=== PATIENT | female | born 1975 | race Caucasian/White ===

== ENCOUNTER → 2016-12-12 | Outpatient (CLI) | payer OTHER ==
[~2016-12-12] MED LIST: ADVIN25/60 INH; OXYC-57 PO; PRLSR20 PO
[2016-12-12 17:23] LABS: BASO % 0.2 %; BASO ABS # 0.02 K/uL (0-0.2); COMPLETE YES; EOS % 2.8 %; HEMATOCRIT 36.7 % (37-47); IG% 0.2 %; LYMPH % 27.2 %; LYMPH ABS # 2.26 K/uL (1.2-3.4); MEAN CELL VOLUME 73.3 fL (80-100); MEAN CORPUSCULAR HEMOGLOBIN 23.2 pg (25-34); MEAN CORPUSCULAR HGB CONC 31.6 g/dl (32-36); MEAN PLATELET VOLUME 9.3 fL (7.4-10.4); MONO % 6.1 %; NEUT % 63.5 %; PLATELET COUNT 325 K/uL (130-400); RED BLOOD COUNT 5.01 M/uL (4.2-5.4); WHITE BLOOD COUNT 8.32 K/uL (4.8-10.8)
== END | disposition home or self-care (01) ==
LOC: C.LAB1850 16:19
PROVIDERS: ATTEND Obstetrics & Gynecology
DX: N92.0 Excessive and frequent menstruation with regular cycle (principal)

== ENCOUNTER → 2017-01-03 | Outpatient (CLI) | payer OTHER | END | disposition home or self-care (01) | LOC: C.PAPS 11:59 | PROVIDERS: ATTEND Obstetrics & Gynecology | DX: Z12.4 Encounter for screening for malignant neoplasm of cervix (principal) ==

== ENCOUNTER → 2017-02-13 | Day surgery (SDC) | payer OTHER ==
[2017-01-21 11:36] VITALS: Ht 162.6 cm; Wt 119.7 kg
--- NOTE | 2017-01-21 11:59 | PAT Medication Instructions ---
Service Date January 21, 2017. Current Home Medication List Fluticasone Prop/Salmeterol (Advair Diskus 250/50 60 Dose), 1 PUFF INH BID Omeprazole (Prilosec), 20 MG PO DAILY PRN for Indigestion Medication Instructions For Your Scheduled Surgery - Take the following medications the morning of surgery with a sip of water: Fluticasone Prop/Salmeterol (Advair Diskus 250/50 60 Dose), 1 PUFF INH BID Omeprazole (Prilosec), 20 MG PO DAILY PRN for Indigestion - Take the following medications as scheduled the night before surgery: Fluticasone Prop/Salmeterol (Advair Diskus 250/50 60 Dose), 1 PUFF INH BID Omeprazole (Prilosec), 20 MG PO DAILY PRN for Indigestion If you have any questions please call us at [phone] (Amarilis Valdes PA-C) or [phone] or [phone]
[2017-01-21 12:40] LABS: HEMATOCRIT 37.3 % (37-47); MEAN CELL VOLUME 74.5 fL (80-100); MEAN CORPUSCULAR HEMOGLOBIN 22.6 pg (25-34); MEAN CORPUSCULAR HGB CONC 30.3 g/dl (32-36); MEAN PLATELET VOLUME 9.2 fL (7.4-10.4); PLATELET COUNT 354 K/uL (130-400); RED BLOOD COUNT 5.01 M/uL (4.2-5.4); WHITE BLOOD COUNT 6.37 K/uL (4.8-10.8)
[2017-01-21 15:09] LABS: BUN/CREATININE RATIO 14.7 (10-20); CREATININE 0.81 mg/dl (0.60-1.20); POTASSIUM 3.8 mmol/L (3.5-5.1)
[2017-01-21 15:17] LABS: CALCIUM 8.5 mg/dl (8.5-10.1)
[~2017-02-13] VITALS: Ht 162.6 cm; Wt 119.7 kg
[~2017-02-13] MED LIST changes: +ATROPINE SULFATE 0.1 MG/ML 5ML SYR IV PRN; +BUPIVACAINE 0.25% 2.5MG/ML PF 10 ML VIAL ONE; +DEXAMETHASONE SOD INJ 4 MG/ML VIAL ONE; +EpHEDrine SULFATE INJ 50 MG/ML AMP IV PRN; +EpHEDrine SULFATE INJ 50 MG/ML AMP ONE; +FENTANYL CITRATE INJ 50 MCG/1 ML 2 ML VIAL ONE; +GLYCOPYRROLATE INJ 0.2 MG/ML VIAL ONE; +IBUPROFEN 600 MG TAB PO PRN; +LACTATED RINGER'S 1000ML 1,000 ML IV SCH; +LIDOCAINE HCL 2% 2 ML VIAL (20MG/ML) ONE; +MIDAZOLAM HCL 1 MG/ML 2ML VIAL ONE; +NEOSTIGMINE METHYLSULFATE 5 MG/5 ML SYR ONE; +ONDANSETRON INJ 2 MG/ML 2 ML VIAL IV PRN; +ONDANSETRON INJ 2 MG/ML 2 ML VIAL ONE; +OXYCODONE/ACETAMINOPHEN 5-325 TAB PO PRN; +PROMETHAZINE HCL INJ 25 MG in SODIUM CHLORIDE 0.9% 50ML 50 ML IV PRN; +PROPOFOL IV EMULSION 10 MG/ML 20 ML VIAL IV ONE; +ROCURONIUM BROMIDE 10 MG/ML 5 ML VIAL ONE; +SCOPOLAMINE 1.5 MG TDSY TD ONE; +SODIUM CHLORIDE 0.9% 1000ML 1,000 ML IV SCH
--- NOTE | 2017-02-13 12:01 | History & Physical Bridge - [place] ---
H&P Re-Evaluation Bridge Note: I have examined the patient, reviewed the History & Physical and in the interval since the performance of the History & Physical I have noted the following changes of clinical significance: No changes noted
--- NOTE | 2017-02-13 14:28 | Discharge Instructions-SurgCtr ---
Discharge Instructions Date of Service Feb 13, 2017. Visit Reason for Visit: Heavy Menses, Desires Sterilization Discharge Discharge Diagnosis / Problem: Left adnexal mass Discharge Goals Goal(s): Diagnostic testing, Therapeutic intervention Activity Recommendations Activity Limitations: per Instructions/Follow-up section Anesthesia . Post Anesthesia Instructions: If you have had General Anesthesia or IV Sedation: * Do not drive today. * Resume driving when surgeon permits. * Do not make important decisions or sign legal documents today. * Call surgeon for: 1. Temperature elevations greater than 101 degrees F. 2. Uncontrollable pain. 3. Excessive bleeding. 4. Persistent nausea and vomiting. 5. Medication intolerance (nausea, vomiting or rash). * For nausea and vomiting use only clear liquids such as: tea, soda, bouillon until nausea subsides, then gradually increase diet as tolerated. * If you have any concerns or questions, call your surgeon's office. If physician is unavailable and it is an emergency, call 911 or go to the nearest emergency room. . Instructions / Follow-Up Instructions / Follow-Up ACTIVITY RECOMMENDATIONS: * Rest the first 2-3 days. You should be back to your normal activity levels by day 3. * No heavy lifting for 2 weeks. * No intercourse, tampons or douching for 1-2 weeks. * You may shower the next day. * Do not drive anytime that you are taking narcotic pain medicines. RETURN TO SCHOOL/WORK: * May return to school or work after 2-3 days. DIET: Nausea may occur in the immediate post-operative period. If so, take clear liquids such as tea, bouillon, apple juice until all nausea has subsided, then resume usual diet. MEDICATIONS: Resume previous medications unless instructed otherwise by your surgeon. Ibuprofen 200mg 2-3 tablets every 4-6 hours as needed -- OR -- Aleve 2 tablets every 8-12 hours as needed for post-operative discomfort Medications are over the counter. Tylenol may be used if above medications are contraindicated or not preferred. Medication should be taken with food or milk. Do not take on an empty stomach. SPECIAL CARE INSTRUCTIONS: * Check temperature twice daily for one week. report any elevation over 101 degrees. * You may experience some vagina spotting and/or bleeding. This is normal for 1 -2 weeks and should not be heavier than a normal period. If it is unusual in amount, call your physician. * Post-operative discomfort may consist of a sore throat, a "bloated" feeling and pain in the shoulders. these are normal symptoms, which usually only last for 2-3 days. * Remove band-aids tomorrow and shower. There is no need to replace band-aids unless there is drainage or discomfort. FOLLOW UP VISIT: Call your doctor's office for a post-operative 2 week visit if not already scheduled. ACTIVITY RECOMMENDATIONS: * Avoid tampons, douching, hot tubs, pools, and intercourse until bleeding has stopped. * May shower as usual. * No strenuous activity for 24-48 hours. After 24-48 hours, you may do anything you feel like doing (driving and sports are okay). SPECIAL CARE INSTRUCTIONS: Special Diet: * Mild nausea may occur in the immediate post-operative period. * Take clear liquids such as tea, cola or bouillon until all nausea has subsided; you may then resume your normal diet. Special Care: * Light bleeding and vaginal spotting can last from a few days to 3-4 weeks. Call your doctor if bleeding becomes heavier than the heaviest part of your period. * Check your temperature twice a day for one week. If it goes above 100.4 degrees Fahrenheit (38.0 Celsius), notify your doctor. * Call your doctor's office for an appointment for 6 weeks after your surgery. FOLLOW-UP VISIT: Call your doctor's office for an appointment for 6 weeks after your surgery. Diet Recommendations Home Diet: resume previous diet Procedures Procedures Performed: Hysteroscopy, D&C, Diagnostic Laparoscopy, Application of Hemostatic Agent Pending Studies Studies pending at discharge: no Medical Emergencies . Who to Call and When: Medical Emergencies: If at any time you feel your situation is an emergency, please call 911 immediately. . Non-Emergent Contact Non-Emergency issues call your: Primary Care Provider, Clay Artist . . "Provider Documentation" section prepared by Lu Mejias. .
[2017-02-13 14:29] LABS: MEAN CELL VOLUME 73.6 fL (80-100); MEAN CORPUSCULAR HEMOGLOBIN 22.1 pg (25-34); MEAN PLATELET VOLUME 9.1 fL (7.4-10.4); PLATELET COUNT 333 K/uL (130-400); RED BLOOD COUNT 4.62 M/uL (4.2-5.4); WHITE BLOOD COUNT 8.79 K/uL (4.8-10.8)
--- NOTE | 2017-02-13 14:31 | [facility] Post Operative Brief Note ---
Immediate Operative Summary Operative Date Feb 13, 2017. Pre-Operative Diagnosis Endometrial Polyp, Desire for Sterilization Post-Operative Diagnosis same Procedure(s) Performed Hysteroscopy, D&C, Diagnostic Laparoscopy, Application of Hemostatic Agent Surgeon Dr. Nyla Mejias [employer] Director Surgeon(s) Eyal Villaseñor MD Estimated Blood Loss 10cc Findings Uterus with large amount of fluffy endometrium, multiple small polyp-appearing areas. Bilateral tubal ostia visualized. Large left adnexal mass - appears to be hematosalpinx, adhered to pelvic sidewall and large bowel. Right tube/ovary appear normal. Normal appearing bowel, appendix, liver. Gallbladder not visualized. Specimens A. Endometrial Curettings Drains tim - clear yellow at end of case Anesthesia general Complication(s) Unexpected findings of adnexal mass Disposition Recovery Room / PACU
[2017-02-13] MEDS: FENTANYL CITRATE INJ 50 MCG/1 ML 2 ML VIAL IV PRN ×2 (15:10→15:17)
--- NOTE | 2017-02-13 15:23 | OPERATIVE REPORT ---
DATE OF OPERATION: 02/13/2017 PREOPERATIVE DIAGNOSES: 1. Endometrial polyp. 2. Desire for sterilization by tubal ligation. POSTOPERATIVE DIAGNOSES: Same plus left hematosalpinx. PROCEDURES PERFORMED: Hysteroscopy, dilation and curettage, diagnostic laparoscopy and application of hemostatic agent. SURGEON: Lu Mejias DO. POT ANNEALER: Dr. Villaseñor. ESTIMATED BLOOD LOSS: 10 mL. FINDINGS: Uterus with large amount of fluffy endometrium, multiple small polyp appearing areas, bilateral tubal ostia visualized, large left adnexal mass appears to be hematosalpinx adhered to the pelvic sidewall and large bowel. Right tube and ovary appear normal. Normal appearing bowel and appendix and liver. Gallbladder was not visualized. SPECIMENS: Endometrial curettings. DRAINS: Reyez, clear yellow at end of case. ANESTHESIA: General. COMPLICATIONS: Unexpected findings of adnexal mass. DISPOSITION: Stable and good to recovery room and passed. INDICATIONS FOR PROCEDURE: The patient is a 41-year-old G3, P2, who had known uterine polyp and desires for tubal ligation. DESCRIPTION OF PROCEDURE: The patient was seen in the preoperative holding area, where risks, benefits, and alternatives to surgery were reviewed. She elected to proceed with the case. Informed consent had previously been obtained in the office. She was taken to the operating room, where general anesthesia was introduced. She was placed in the dorsal lithotomy position with feet in Yellofin stirrups. Her timeout was called and confirmed. A weighted speculum was placed in the vagina. Cervix was visualized and grasped with a single tooth tenaculum. The cervix was sequentially dilated to admit the MyoSure hysteroscope. This was inserted with the above noted findings. The MyoSure device was used; however, due to the large amount of leakage of fluid out of the cervical os, this was limited. This was then abandoned and a D&C with a sharp curette was undertaken. All of these specimens were sent to pathology for further evaluation. A Reyez catheter was placed and the acorn uterine manipulator was placed. Gloves and gown were changed and attention was then turned to the abdomen. An infraumbilical incision was made with a scalpel and using the open Sisi technique, the abdomen was entered and a trocar was placed. The camera was inserted. Intra-abdominal placement was noted and CO2 gas was used to insufflate the abdomen to a pressure of 15 mmHg. A suprapubic port was placed under direct visualization and the bowel was swept out of the way. Upon visualization of the uterus and tubes, the left fallopian tube appeared to be a large hematosalpinx. I called for Dr. Villaseñor to come to the operating room to assist with the case and offer a second opinion. The right fallopian tube and ovary appeared normal; however, due to the pathology found on the left side, decision was made to abandon the tubal ligation procedure and I will recommend to the patient that she undergo removal of this adnexal mass in the main operating room with the da Violette robot. At this time, in the surgical center, I did not feel like it was safe procedure to attempt to remove this mass at this time due to its anatomical location in the pelvis, lying right on top of the left ureter. There was a small amount of bleeding on the posterior uterine body, likely from attempt to sweep the bowel and uterus out of the way. This was made hemostatic with FloSeal. Excellent hemostasis was noted again with a low pressure test. The trocars were removed under direct visualization and all instruments were removed from the abdomen. The infraumbilical fascia was reapproximated with 0 Vicryl and all skin incisions were reapproximated with 4-0 Vicryl in a subcuticular stitch. All instruments were removed from the vagina and I will discuss these above findings with the patient both today and at her 2-week followup visit in the office. I discussed the unexpected findings with the patient's daughter immediately following the case. I attest to the content of the Intraoperative Record and any orders documented therein. Any exception s are noted below.
[2017-02-13 16:00] VITALS: TEMP 36.7
[2017-02-13 16:20] VITALS: BP 132/84; PULSE 86; O2SAT 98
--- NOTE | 2017-02-13 16:23 | Anesthesia Progress Nt - [facility] ---
Anesthesia Post Op Note Date & Time Feb 13, 2017 at 16:23 Vital Signs Pain Intensity: 2 Vital Signs Past 12 Hours Date Time Temp Pulse Resp B/P (MAP) Pulse Ox O2 Delivery O2 Flow Rate FiO2 02/13/17 16:20 86 132/84 (100) 98 Room Air 02/13/17 16:00 36.7 81 130/81 (97) 97 Room Air 02/13/17 15:35 75 18 97 02/13/17 15:35 74 18 02/13/17 15:34 84 18 02/13/17 15:34 88 18 91 02/13/17 15:31 36.6 75 16 119/81 94 Room Air 02/13/17 15:31 119/81 02/13/17 15:29 78 23 02/13/17 15:29 79 23 95 02/13/17 15:26 118/63 02/13/17 15:24 76 20 02/13/17 15:24 73 20 94 02/13/17 15:21 101/62 02/13/17 15:19 79 16 97 02/13/17 15:19 77 16 02/13/17 15:16 116/67 02/13/17 15:14 75 18 98 02/13/17 15:14 72 18 02/13/17 15:11 124/76 02/13/17 15:09 80 10 93 02/13/17 15:09 79 10 02/13/17 15:06 118/58 02/13/17 15:04 80 18 96 02/13/17 15:04 79 18 02/13/17 15:01 104/71 02/13/17 14:59 75 12 99 02/13/17 14:59 75 12 02/13/17 14:57 115/64 02/13/17 14:54 86 16 02/13/17 14:54 85 16 92 02/13/17 14:51 108/74 02/13/17 14:49 92 19 02/13/17 14:49 94 19 95 02/13/17 14:46 117/42 02/13/17 14:44 81 24 02/13/17 14:44 79 24 97 02/13/17 14:41 97/56 02/13/17 14:39 72 17 02/13/17 14:39 71 17 95 02/13/17 14:36 111/57 6/14/17 14:34 89 16 96 02/13/17 14:34 87 16 02/13/17 14:31 106/59 02/13/17 14:29 83 16 94 02/13/17 14:29 84 16 02/13/17 14:26 89/53 02/13/17 14:24 87 13 02/13/17 14:24 13 02/13/17 14:21 114/56 02/13/17 14:20 103/56 02/13/17 14:19 36.3 71 16 103/56 95 Diffusion Mask 6 02/13/17 11:15 36.8 70 18 138/89 (105) 99 Room Air Notes Mental Status: alert / awake / arousable, participated in evaluation Pt Amnestic to Procedure: Yes Nausea / Vomiting: adequately controlled Pain: adequately controlled Airway Patency, RR, SpO2: stable & adequate BP & HR: stable & adequate Hydration State: stable & adequate Anesthetic Complications: no major complications apparent
== END | disposition home or self-care (01) ==
LOC: X.SURG 10:48
PROVIDERS: ATTEND Obstetrics & Gynecology
DX: N92.0 Excessive and frequent menstruation with regular cycle (principal); Z30.2 Encounter for sterilization; N84.0 Polyp of corpus uteri; N83.6 Hematosalpinx; J45.909 Unspecified asthma, uncomplicated; Z80.3 Family history of malignant neoplasm of breast

== ENCOUNTER → 2017-02-27 | Outpatient (CLI) | payer OTHER ==
[~2017-02-27] MED LIST changes: -ATROPINE SULFATE 0.1 MG/ML 5ML SYR IV PRN; -BUPIVACAINE 0.25% 2.5MG/ML PF 10 ML VIAL ONE; -DEXAMETHASONE SOD INJ 4 MG/ML VIAL ONE; -EpHEDrine SULFATE INJ 50 MG/ML AMP IV PRN; -EpHEDrine SULFATE INJ 50 MG/ML AMP ONE; -FENTANYL CITRATE INJ 50 MCG/1 ML 2 ML VIAL ONE; -GLYCOPYRROLATE INJ 0.2 MG/ML VIAL ONE; -IBUPROFEN 600 MG TAB PO PRN; -LACTATED RINGER'S 1000ML 1,000 ML IV SCH; -LIDOCAINE HCL 2% 2 ML VIAL (20MG/ML) ONE; -MIDAZOLAM HCL 1 MG/ML 2ML VIAL ONE; -NEOSTIGMINE METHYLSULFATE 5 MG/5 ML SYR ONE; -ONDANSETRON INJ 2 MG/ML 2 ML VIAL IV PRN; -ONDANSETRON INJ 2 MG/ML 2 ML VIAL ONE; -OXYCODONE/ACETAMINOPHEN 5-325 TAB PO PRN; -PROMETHAZINE HCL INJ 25 MG in SODIUM CHLORIDE 0.9% 50ML 50 ML IV PRN; -PROPOFOL IV EMULSION 10 MG/ML 20 ML VIAL IV ONE; -ROCURONIUM BROMIDE 10 MG/ML 5 ML VIAL ONE; -SCOPOLAMINE 1.5 MG TDSY TD ONE; -SODIUM CHLORIDE 0.9% 1000ML 1,000 ML IV SCH
[2017-02-27 17:59] LABS: URINE APPEARANCE CLOUDY (CLEAR); URINE BILIRUBIN NEG (NEG); URINE COLOR YELLOW; URINE EPITHELIAL CELL AUTO >30 /lpf (0-5); URINE NITRITE NEG (NEG); URINE SPECIFIC GRAVITY 1.019 (1.000-1.030); UROBILINOGEN NEG (NEG)
[2017-02-27 18:01] LABS: MANUAL MICROSCOPIC REQUIRED? NO; REVIEW REQ? NO
== END | disposition home or self-care (01) ==
LOC: C.LABPBG 14:36
PROVIDERS: ATTEND Nurse Practitioner
DX: R30.0 Dysuria (principal)

== ENCOUNTER → 2017-03-22 | Outpatient (CLI) | payer OTHER ==
--- NOTE | 2017-03-25 08:00 | MAMMOGRAPHY REPORT ---
BILATERAL FIRST EVER DIGITAL SCREENING MAMMOGRAM TOMOSYNTHESIS WITH CAD: 03/22/2017 CLINICAL HISTORY: Routine screening. Baseline exam. TECHNIQUE: Breast tomosynthesis in addition to standard 2D mammography was performed. Current study was also evaluated with a Computer Aided Detection (CAD) system. COMPARISON: No prior exams were available for comparison. BREAST COMPOSITION: There are scattered areas of fibroglandular density in both breasts. FINDINGS: No suspicious mass, architectural distortion or cluster of microcalcifications is seen. IMPRESSION: ACR BI-RADS CATEGORY 1: NEGATIVE There is no mammographic evidence of malignancy. A 1 year screening mammogram is recommended. The pa tient will receive written notification of the results. Approximately 10% of breast cancers are not detected with mammography. A negative mammographic report should not delay biopsy if a clinically suggestive mass is present. Lela pacheco/[place]:03/22/2017 16:10:23 Winder Helper: Boubacar MEDEROS)([place]), [facility] letter sent: Normal 1/2 BI-RADS Code: ACR BI-RADS Category 1: Negative
== END | disposition home or self-care (01) ==
LOC: C.MAMM 15:22
PROVIDERS: ATTEND Obstetrics & Gynecology
DX: Z12.31 Encounter for screening mammogram for malignant neoplasm of breast (principal)

== ENCOUNTER 2017-03-25 09:41 | Day surgery (SDC) | payer OTHER ==
[2017-03-13 16:33] LABS: BASO % 0.3 %; BASO ABS # 0.02 K/uL (0-0.2); EOS % 6.3 %; HEMATOCRIT 38.2 % (37-47); IG% 0.1 %; LYMPH % 28.7 %; LYMPH ABS # 1.96 K/uL (1.2-3.4); MEAN CELL VOLUME 74.8 fL (80-100); MEAN CORPUSCULAR HEMOGLOBIN 23.1 pg (25-34); MEAN CORPUSCULAR HGB CONC 30.9 g/dl (32-36); MEAN PLATELET VOLUME 9.3 fL (7.4-10.4); MONO % 6.6 %; PLATELET COUNT 273 K/uL (130-400); RED BLOOD COUNT 5.11 M/uL (4.2-5.4); WHITE BLOOD COUNT 6.82 K/uL (4.8-10.8)
[2017-03-13 16:35] LABS: PREG INTERNAL NEGATIVE QC NEG CLEAR BACKGROUND; PREG INTERNAL POSITIVE QC POS CONTROL LINE
[2017-03-13 16:36] LABS: URINE APPEARANCE CLEAR (CLEAR); URINE BILIRUBIN NEG (NEG); URINE COLOR YELLOW; URINE EPITHELIAL CELL AUTO >30 /lpf (0-5); URINE NITRITE NEG (NEG); URINE SPECIFIC GRAVITY 1.022 (1.000-1.030); UROBILINOGEN NEG (NEG)
[2017-03-13 16:37] LABS: MANUAL MICROSCOPIC REQUIRED? NO; REVIEW REQ? NO
[2017-03-13 17:10] LABS: BLOOD UREA NITROGEN 12 mg/dl (7-18); BUN/CREATININE RATIO 15.4 (10-20); CARBON DIOXIDE 23 mmol/L (21-32); CHLORIDE 106 mmol/L (98-107); CREATININE 0.78 mg/dl (0.60-1.20); GLUCOSE 69 mg/dl (70-99); POTASSIUM 3.6 mmol/L (3.5-5.1); SODIUM 140 mmol/L (136-145)
[2017-03-13 17:24] LABS: COMPLETE YES; MICROCYTOSIS PRESENT
[2017-03-15 14:22] VITALS: Ht 162.6 cm; Wt 119.5 kg
[~2017-03-25] VITALS: Ht 162.6 cm; Wt 119.5 kg
[~2017-03-25 09:41] MED LIST changes: +ACETAMINOPHEN 1000 MG/100 ML IV IV ONE; +CEFAZOLIN 2000 MG/60 ML D5W 50 ML IV SCH; +LACTATED RINGER'S 1000ML 1,000 ML IV SCH; -OXYC-57 PO
[2017-03-25 10:12] VITALS: BP 192/78; PULSE 75; TEMP 36.7; O2SAT 99
[2017-03-25] MEDS ORDERED: ONDANSETRON INJ 2 MG/ML 2 ML VIAL ONE (10:13)
[2017-03-25] MEDS ORDERED: MIDAZOLAM HCL 1 MG/ML 2ML VIAL ONE (10:13)
[2017-03-25] MEDS ORDERED: DEXAMETHASONE SOD INJ 4 MG/ML VIAL ONE (10:13)
[2017-03-25] MEDS ORDERED: METHYLENE BLUE 0.5% 10 ML VIAL ONE (10:13)
[2017-03-25] MEDS ORDERED: LIDOCAINE HCL 2% 2 ML VIAL (20MG/ML) ONE (10:13)
[2017-03-25] MEDS ORDERED: ROCURONIUM BROMIDE 10 MG/ML 5 ML VIAL ONE ×2 (10:13→13:45)
[2017-03-25] MEDS ORDERED: PROPOFOL IV EMULSION 10 MG/ML 20 ML VIAL IV ONE ×2 (10:13→14:46)
[2017-03-25] MEDS ORDERED: FENTANYL CITRATE INJ 50 MCG/1 ML 2 ML VIAL ONE ×3 (10:14→14:46)
[2017-03-25 10:56] LABS: PREG INTERNAL NEGATIVE QC NEG CLEAR BACKGROUND; PREG INTERNAL POSITIVE QC POS CONTROL LINE
[2017-03-25] MEDS ORDERED: HYDROmorphone INJ 1 MG/ML SYR IV PRN (11:00)
[2017-03-25] MEDS ORDERED: DEXAMETHASONE SOD INJ 4 MG/ML VIAL IV PRN (11:00)
[2017-03-25] MEDS ORDERED: PROMETHAZINE HCL INJ 12.5 MG in SODIUM CHLORIDE 0.9% 50ML 50 ML IV PRN (11:00)
[2017-03-25] MEDS ORDERED: ONDANSETRON INJ 2 MG/ML 2 ML VIAL IV PRN ×2 (11:00→15:30)
[2017-03-25] MEDS ORDERED: EpHEDrine SULFATE INJ 50 MG/ML AMP IV PRN (11:00)
[2017-03-25] MEDS ORDERED: ATROPINE SULFATE 0.1 MG/ML 5ML SYR IV PRN (11:00)
--- NOTE | 2017-03-25 12:03 | History & Physical Bridge Note ---
H&P Re-Evaluation Bridge Note: I have examined the patient, reviewed the History & Physical and in the interval since the performance of the History & Physical I have noted the following changes of clinical significance: No changes noted Reviewed plan to remove adnexal mass - this will likely include left tube and ovary. Will remove right fallopian tube, possible right oophorectomy. Reviewed risk of potential damage to bowel/bladder/ureters/uterus and potential need for further surgery. Patient elects to proceed with surgery.
[2017-03-25] MEDS ORDERED: BUPIVACAINE 0.5 % 5 MG/1 ML MPF 30ML VIAL ONE (12:39)
[2017-03-25] MEDS ORDERED: CONRAY 30% 150ML BOTTLE ONE (12:39)
--- NOTE | 2017-03-25 13:45 | DIAGNOSTIC IMAGING REPORT ---
RETROGRADE INCLUDES KUB CLINICAL HISTORY: BILAT STENTS stent placement TECHNIQUE: Image intensifier COMPARISON STUDY: None FINDINGS: Image intensifier for stent placement IMPRESSION: Image intensifier was used intraoperatively for stent placement The above report was generated using voice recognition software. It may contain grammatical, syntax or spelling errors. Electronically signed by: Roman Almanzar M.D. 03/25/2017 1:44 PM Dictated Date/Time: 03/25/2017 1:43 PM
[2017-03-25] MEDS ORDERED: PHENYLEPHRINE 100MCG/ML 5ML SYR ONE (14:43)
[2017-03-25] MEDS ORDERED: SODIUM CHLORIDE 0.9% 1000ML 1,000 ML IV SCH (15:21)
--- NOTE | 2017-03-25 15:21 | [facility] Post Operative Brief Note ---
Immediate Operative Summary Operative Date Mar 25, 2017. Pre-Operative Diagnosis Left adenexal mass. Post-Operative Diagnosis Same as preop. Procedure(s) Performed Left salpingo-oophorectomy, removal of left adenexal mass, right salpingectomy, lysis of adhesions with use of Davinci, cystoscopy, bilateral pyelogram retrograde with bilateral stent insetion and removal. Surgeon Dr. Mejias Shopper Insights Manager Surgeon(s) Dr. Villaseñor Estimated Blood Loss 10 ml Findings Large left adnexal mass, with adhesions to bowel and uterus. Normal appearing right tube/ovary, normal appearing appendix. Specimens A: Left adenexal mass (left tube and ovary), right fallopian tube. Drains tim, clear red-yellow, removed at conclusion of case Anesthesia general Complication(s) None Disposition Recovery Room / PACU
[2017-03-25] MEDS: FENTANYL CITRATE INJ 50 MCG/1 ML 2 ML VIAL IV PRN ×4 (15:23→15:38)
[2017-03-25] MEDS ORDERED: OXYC-57 PO (15:24)
--- NOTE | 2017-03-25 15:26 | Discharge Instructions ---
Discharge Instructions Date of Service Mar 25, 2017. Visit Reason for Visit: Pelvic Mass, Urinary Stress Incontinence Discharge Discharge Diagnosis / Problem: s/p right salpingectomy, left salpingoophorectomy Discharge Goals Goal(s): Therapeutic intervention Activity Recommendations Activity Limitations: per Instructions/Follow-up section Anesthesia . Post Anesthesia Instructions: If you have had General Anesthesia or IV Sedation: * Do not drive today. * Resume driving when surgeon permits. * Do not make important decisions or sign legal documents today. * Call surgeon for: 1. Temperature elevations greater than 101 degrees F. 2. Uncontrollable pain. 3. Excessive bleeding. 4. Persistent nausea and vomiting. 5. Medication intolerance (nausea, vomiting or rash). * For nausea and vomiting use only clear liquids such as: tea, soda, bouillon until nausea subsides, then gradually increase diet as tolerated. * If you have any concerns or questions, call your surgeon's office. If physician is unavailable and it is an emergency, call 911 or go to the nearest emergency room. . Diet Recommendations Recommended Home Diet: resume previous diet Procedures Procedures Performed: Left salpingo-oophorectomy, removal of left adenexal mass, right salpingectomy, lysis of adhesions with use of Davinci, cystoscopy, bilateral pyelogram retrograde with bilateral stent insetion and removal. Pending Studies Studies pending at discharge: yes List of pending studies: pathology of surgical specimens Medical Emergencies . Who to Call and When: Medical Emergencies: If at any time you feel your situation is an emergency, please call 911 immediately. . Non-Emergent Contact Non-Emergency issues call your: Primary Care Provider, Technical Illustrator . . "Provider Documentation" section prepared by Lu Mejias. . [place] Drug Monitoring Program Drug Monitoring Findings: [place] PDMP reviewed, no concerns
[2017-03-25] MEDS ORDERED: PROMETHAZINE HCL INJ 25 MG in SODIUM CHLORIDE 0.9% 50ML 50 ML IV PRN (15:30)
[2017-03-25] MEDS ORDERED: OXYCODONE/ACETAMINOPHEN 5-325 TAB PO PRN ×2 (15:30)
[2017-03-25] MEDS ORDERED: KETOROLAC TROMETHAMINE 30 MG/ML VIAL IV. PRN (15:30)
--- NOTE | 2017-03-25 15:42 | Anesthesiology Progress Note ---
Anesthesia Post Op Note Date & Time Mar 25, 2017 at 15:41 Vital Signs Pain Intensity: 5.0 Vital Signs Past 12 Hours Date Time Temp Pulse Resp B/P (MAP) Pulse Ox O2 Delivery O2 Flow Rate FiO2 03/25/17 15:30 65 16 102/67 100 Oxymask 10 03/25/17 15:20 75 16 122/68 100 Oxymask 10 03/25/17 15:13 36.1 76 16 126/71 100 Oxymask 10 03/25/17 10:12 36.7 75 18 192/78 (116) 99 Room Air Notes Mental Status: alert / awake / arousable, participated in evaluation Pt Amnestic to Procedure: Yes Nausea / Vomiting: adequately controlled Pain: adequately controlled Airway Patency, RR, SpO2: stable & adequate BP & HR: stable & adequate Hydration State: stable & adequate Anesthetic Complications: no major complications apparent
[2017-03-25 16:07] VITALS: BP 116/59; PULSE 62; TEMP 36.7; O2SAT 95
[2017-03-25 16:35] VITALS: BP 120/55; PULSE 67; O2SAT 94
[2017-03-25 17:08] VITALS: BP 125/69; PULSE 70; TEMP 36.6; O2SAT 94
[2017-03-25 17:47] VITALS: BP 128/62; PULSE 59; TEMP 36.7; O2SAT 98
--- NOTE | 2017-03-25 23:11 | OPERATIVE REPORT ---
DATE OF OPERATION: 03/25/2017 PREOPERATIVE DIAGNOSIS: Left adnexal mass and desire for sterilization. POSTOPERATIVE DIAGNOSIS: Same. PROCEDURES PERFORMED: 1. Left salpingo-oophorectomy. 2. Removal of left adnexal mass. 3. Right salpingectomy. 4. Lysis of adhesions with use of da Violette. 5. Cystoscopy and bilateral pyelogram retrograde with bilateral stent insertion and removal by urology. SURGEON: Dr. Lu Mejias. SIGNAL WORKER: Dr. Villaseñor. ESTIMATED BLOOD LOSS: 10 mL. FINDINGS: Large left adnexal mass with adhesions to bowel and uterus, normal appearing right tube and ovary with normal appearing appendix. SPECIMENS: Left adnexal mass, left tube and ovary and right fallopian tube. DRAINS: Reyez, clear red, yellow. Removed at conclusion of case. ANESTHESIA: General. COMPLICATIONS: None. DISPOSITION: Stable and good to recovery room. INDICATIONS FOR PROCEDURE: The patient is a 41-year-old G3, P2 who had initially undergone laparoscopy for planned tubal ligation. Upon previous laparoscopy, it was noted that the patient had a large left adnexal mass that had multiple adhesions to bowel, uterus and peritoneal sidewall. Therefore, the procedure was abandoned at the time and the patient was counseled on likelihood of removal of left ovary with removal of the adnexal mass as well as the need for performance of the surgery in the main OR. DESCRIPTION OF PROCEDURE: The patient was seen in the preoperative holding area where risks, benefits, alternatives to surgery were reviewed. She elected to proceed with the case. She had previously reviewed risks, benefits, alternatives of tubal ligation including risk of future of 2 to 10/999 cases after tubal sterilization. She was agreeable to surgery. She was taken to the operating room where general anesthesia was infused, 2 g of Ancef were given preoperatively. She was prepared and draped in the usual sterile fashion with feet in [facility] stirru. Urology had been requested to consult on the case to place bilateral ureteral stents due to location of the pelvic mass and Dr. Duran Ferraro placed ureteral stents and confirmed location with retrograde pyelogram. The patient was then re-prepared and redraped and a uterine manipulator was placed through the cervix with the aid of a single tooth tenaculum. Gloves and gown were changed and attention was then turned to the abdomen where a supraumbilical incision was made with a scalpel and using the open Sisi technique, the Sisi trocar was placed. The camera was inserted and intraabdominal placement was noted. The abdomen was then insufflated with 15 mmHg of CO2 gas. Bilateral trocars were then inserted after the patient was placed in Trendelenburg position for a total of 5 trocar sites. The robot was then docked and the right salpingectomy was performed first. The right fallopian tube was grasped and using monopolar cautery, transected from the mesosalpinx. The right fallopian tube was then coagulated at its insertion to the uterus and transected and this was removed through the construction administrative assistant port trocar site and sent to pathology for further evaluation. Next, attention was turned to the left adnexa where multiple adhesions between adnexal mass and large bowel were noted. These were gently taken down with sharp and blunt dissection. The left uteroovarian ligament was coagulated and transected as well as the left round ligament. The posterior broad ligament was then opened and the peritoneum on the left pelvic sidewall was gently opened as well to better visualize the infundibulopelvic ligament. Once a window at the site of the infundibulopelvic ligament was created, this pedicle was then coagulated and transected. Excellent hemostasis was noted. The mass was then freed of all adhesions on all sides using blunt and sharp dissection and was then removed from the abdomen using an EndoCatch bag. The pelvis was then irrigated copiously and suctioned and excellent hemostasis was observed. All instruments were removed from the abdomen. The abdomen was desufflated. The robot was undocked and the supraumbilical trocar site fascia was reapproximated using 0 Vicryl. All trocar incisions were reapproximated at the skin with a subcuticular stitch of 4-0 Vicryl. Dermabond was applied, attention was then turned to the pelvis where the uterine manipulator and single tooth tenaculum were removed. Excellent hemostasis was observed and the bilateral ureteral stents were gently removed with notation of intact tips bilaterally of the stents. The Reyez catheter was then removed and the patient was awoken from anesthesia and taken to the recovery area in stable and good condition. She will be discharged to home with prescription for Percocet tablets, [place] PDMP was checked and no issues identified. She will follow up in the office in 2 weeks for a postoperative visit. All specimens were sent to pathology. The patient tolerated the procedure well. Sponge, instrument and needle counts were correct at the conclusion of the case. I attest to the content of the Intraoperative Record and any orders documented therein. Any exceptions are noted below. CATA
--- NOTE | 2017-03-26 11:09 | OPERATIVE REPORT ---
DATE OF OPERATION: 03/25/2017 PREOPERATIVE DIAGNOSIS: Pelvic mass. POSTOPERATIVE DIAGNOSIS: Same. PROCEDURE: Cystoscopy, bilateral retrograde pyelograms, and bilateral insertion of temporary ureteral stents and a Reyez insertion. FINDINGS: Cystoscopic exam revealed normal urethra. Bladder showed no mucosal abnormalities. Left and right retrograde pyelograms showed no abnormalities. SURGEON: Dr. Ferraro. ANESTHESIA: General. DRAINS: 5-Samoan Flexi-Tip stents left and right ureter, Reyez catheter in bladder. COMPLICATIONS: None. SPECIMENS: None. INDICATIONS: The patient is a 41-year-old white female with a large pelvic mass near one of the ureters. We were requested to place preoperative stents before she underwent gynecologic surgery to remove the mass. PROCEDURE IN DETAIL: After the induction of an adequate general anesthetic and appropriate timeout, the patient was placed in the dorsal lithotomy position, lower abdomen and genitalia were prepped with Hibiclens, draped in sterile fashion. Using a 22-Samoan cystoscope, routine cystoscopic exam was performed with the above-noted findings with the 30- and 70-degree lenses. Next, using 5-Samoan Flexi-Tip closed end ureteral catheters, the first stent was passed up the right ureter. Dye was injected outlining the collecting system and the stent was passed up to the level of the renal pelvis. An identical procedure was performed on the opposite side. After placing both left and right ureteral stents, cystoscope was removed and Reyez catheter was inserted and hooked to gravity drainage. The stents were tied to the Reyez catheter with 0 silk, and the Reyez and both stents were placed to a drainage bag. After completion of this portion of the operation, the patient was then handed over to Dr. Mejias who will do the gynecologic procedure. Dr. Mejias will remove the ureteral stents at the completion of the procedure. I attest to the content of the Intraoperative Record and any orders documented therein. Any exception s are noted below.
== END 2017-03-25 18:00 | disposition home or self-care (01) ==
LOC: C.ACU 09:41
PROVIDERS: ATTEND Obstetrics & Gynecology
DX: R19.00 Intra-abdominal and pelvic swelling, mass and lump, unspecified site (principal); Z87.440 Personal history of urinary (tract) infections; Z80.3 Family history of malignant neoplasm of breast; J45.909 Unspecified asthma, uncomplicated; K21.9 Gastro-esophageal reflux disease without esophagitis; E66.01 Morbid (severe) obesity due to excess calories

== ENCOUNTER 2017-12-05 16:24 | Emergency (ER) | payer OTHER ==
[~2017-12-05] VITALS: Ht 162.6 cm; Wt 118.9 kg
[~2017-12-05 16:24] MED LIST changes: -ACETAMINOPHEN 1000 MG/100 ML IV IV ONE; -CEFAZOLIN 2000 MG/60 ML D5W 50 ML IV SCH; -LACTATED RINGER'S 1000ML 1,000 ML IV SCH
[2017-12-05 16:41] VITALS: TEMP 36.7; Ht 162.6 cm; Wt 118.9 kg
[2017-12-05] MEDS ORDERED: ONDANSETRON INJ 2 MG/ML 2 ML VIAL IV STA (17:05)
[2017-12-05] MEDS ORDERED: SODIUM CHLORIDE 0.9% 1000ML 1,000 ML IV STA (17:05)
[2017-12-05] MEDS ORDERED: MoRPHine SULFATE 4 MG/ML 1 ML CARP\\VIAL IV PRN (17:15)
[2017-12-05] MEDS ORDERED: LANS15CA27 PO (17:30)
[2017-12-05 19:07] VITALS: O2SAT 99
[2017-12-05 19:07] LABS: BASO % 0.2 %; BASO ABS # 0.02 K/uL (0-0.2); EOS % 0.9 %; HEMATOCRIT 36.1 % (37-47); HEMOGLOBIN 11.2 g/dL (12.0-16.0); IG# 0.02 K/uL (0.00-0.02); LYMPH % 17.2 %; LYMPH ABS # 1.84 K/uL (1.2-3.4); MEAN CELL VOLUME 71.8 fL (80-100); MEAN CORPUSCULAR HEMOGLOBIN 22.3 pg (25-34); MEAN PLATELET VOLUME 9.1 fL (7.4-10.4); MONO % 8.1 %; MONO ABS # 0.86 K/uL (0.11-0.59); NEUT % 73.4 %; NEUT ABS # 7.84 K/uL (1.4-6.5); PLATELET COUNT 339 K/uL (130-400); WHITE BLOOD COUNT 10.68 K/uL (4.8-10.8)
[2017-12-05 19:30] LABS: ALBUMIN 3.1 gm/dl (3.4-5.0); CALCIUM 8.6 mg/dl (8.5-10.1); CREATININE 1.49 mg/dl (0.60-1.20); POTASSIUM 3.7 mmol/L (3.5-5.1)
[2017-12-05 19:33] LABS: TOTAL PROTEIN 7.4 gm/dl (6.4-8.2)
--- NOTE | 2017-12-05 19:49 | DIAGNOSTIC IMAGING REPORT ---
GALLBLADDER-ABD LIMITED CLINICAL HISTORY: 42 years-old Female presenting with ABDOMINAL PAIN/GI, right upper quadrant pain. TECHNIQUE: Real-time grayscale and limited color Doppler ultrasound imaging of the abdomen limited to the right upper quadrant was performed. COMPARISON: None. FINDINGS: Pancreas: Visualized portions of the pancreatic head and body normal. Liver: Normal echogenicity and echotexture. The liver measures 19.7 cm in maximal sagittal dimension. No sonographic evidence of hepatic mass. Main portal vein patent with normal directional flow. Biliary: No intrahepatic biliary ductal dilatation. Common bile duct measures up to 3 mm in diameter. Gallbladder: No evidence of gallstones, gallbladder wall thickening, gallbladder distention, or pericholecystic fluid or inflammatory change. Right kidney: Mild pelvocaliectasis. Ascites: None. Other: None. IMPRESSION: 1. No cholelithiasis or biliary ductal dilatation. 2. Mild hepatomegaly. 3. Mild right pelvocaliectasis. Given the patient's history of ureteral stents, this may be chronic and suggests a flaccid system rather than hydronephrosis. Electronically signed by: Finesse Morris M.D. 12/05/2017 7:47 PM Dictated Date/Time: 12/05/2017 7:45 PM
--- NOTE | 2017-12-05 21:00 | DIAGNOSTIC IMAGING REPORT ---
ABD/PELVIS WITHOUT FOR STONE CLINICAL HISTORY: 42 years-old Female presenting with RUQ pain into flank. TECHNIQUE: Multidetector CT of the abdomen and pelvis was performed without the use of intravenous contrast. IV contrast: None. A dose lowering technique was used consistent with the principles of ALARA (as low as reasonably achievable). COMPARISON: None. CT DOSE (mGy.cm): The estimated cumulative dose is 1715.36 mGy.cm. FINDINGS: [employer] topogram: Unremarkable. Lung bases: Lungs and pleural spaces clear. Normal heart size. No pericardial or pleural effusion. Liver: Normal morphology. Density consistent with hepatic steatosis. Biliary: No gross biliary ductal dilatation allowing for noncontrast technique. Normal gallbladder. Pancreas: Mild parenchymal atrophy. Spleen: Normal noncontrast appearance. Adrenal glands: Normal noncontrast appearance. Kidneys and ureters: Right perinephric fat stranding and enlargement of the right kidney. The right kidney is edematous. Mild to moderate pelvocaliectasis on the right. No left hydronephrosis. The right ureter is also mildly dilated. Allowing for noncontrast technique, no gross evidence of obstructing mass or calculus. Left ureter normal. Bladder: Incompletely evaluated secondary to underdistention. This limits evaluation. Pelvic organs: Few hypodensities at the level of the lower uterine segment may represent nabothian cysts. Right ovary grossly normal allowing for noncontrast technique. Left ovary not visualized. A tampon is noted in the vagina. Bowel: Diverticulosis of the sigmoid colon. No pericolonic inflammatory change. Few scattered diverticula noted elsewhere in the colon. The appendix is normal. No bowel obstruction. Peritoneal cavity: No free fluid or intraperitoneal gas. Lymph nodes: No gross lymphadenopathy allowing for noncontrast technique. Vasculature: Normal noncontrast appearance. Abdominal wall: Two fat-containing ventral hernias noted in the periumbilical region without evidence of associated inflammatory change to suggest strangulation. Nonspecific subcutaneous edema in the lumbar region. Musculoskeletal: Normal. IMPRESSION: 1. Mild to moderate right hydroureteronephrosis without obstructing calculus. This could suggest a recently passed calculus. The presence of an obstructing mass cannot be excluded without intravenous contrast. Additionally, superimposed infection cannot be excluded. 2. No evidence of renal or ureteral calculi. 3. Hepatic steatosis. 4. Limited examination secondary to the lack of intravenous contrast. The report will be called/faxed according to standard departmental protocol. Electronically signed by: Finesse Morris M.D. 12/05/2017 8:59 PM Dictated Date/Time: 12/05/2017 8:53 PM
[2017-12-05] MEDS ORDERED: CIPR-255 PO (21:24)
[2017-12-05] MEDS ORDERED: CIPROFLOXACIN 500MG HOME PACK PO ONE (21:30)
[2017-12-05 21:40] VITALS: BP 128/79; PULSE 72
--- NOTE | 2017-12-06 10:52 | EMERGENCY ROOM VISIT NOTE ---
ED Visit Note First contact with patient: 16:45 Chief Complaint: Abdominal pain. History of Present Illness: Ms. Taylor is a 42 year-old white female who ambulates into the ED accompanied by female friend complaining of right upper quadrant quadrant abdominal pain. Historically patient reports gastric reflux, endometriosis, tubal ligation and left oophorectomy. Patient reports a acute onset of right upper quadrant abdominal pain that started approximately just over to 24 hours ago ago. Since that time the pain has been constant but has waxed and waned in intensity. The pain is currently described as sharp. She rates her discomfort at its worst 10/10 and currently 4 /10. The pain is radiating around the abdomen and into the right flank. She has not identified any aggravating or alleviating factors related to the pain. She reports using Tylenol without relief of her discomfort. Associated with her pain she reports she has been having nausea and vomiting and when the pain becomes severe she develops chills but no sudarshan fevers. Additionally she reports she is currently menstruating and so far she reports this is her normal menstrual cycle. Patient denies skin eruptions, skin color changes, upper respiratory tract symptoms, shortness of breath, chest pain, diarrhea, constipation, rectal bleeding, black/tarry stools, urinary symptoms, hematuria, vaginal discharge. Review of Systems: As noted above in history of present illness. All body systems were reviewed and found to be negative as noted above. Past Medical History: As previously noted, asthma and status post wisdom teeth extraction. Current Medications: Advair, Prevacid. Allergies to Medications: Patient denies. Social History: Patient is currently employed; she feels safe in her home environment; she denies tobacco and alcohol use. Physical Examination: Vital Signs: Date Time Temp Pulse Resp B/P (MAP) Pulse Ox O2 Delivery O2 Flow Rate FiO2 12/05/17 21:40 72 128/79 12/05/17 19:07 80 132/78 99 Room Air 12/05/17 16:41 36.7 90 20 152/98 100 Room Air GENERAL: 42-year-old female in mild distress due to pain, nontoxic-appearing, afebrile and hemodynamically stable. NEUROLOGICAL: Awake, alert and oriented to person, place and time. Answering questions appropriately and following commands. Normal gait. Good hand eye coordination. SKIN: Warm, dry and pink. No soft tissue eruptions or trauma noted. HEENT: Atraumatic and normocephalic. PERRLA. Sclera white and conjunctiva pink. Oral cavity moist and pink. Pharynx is nonerythematous or edematous. Speech normal. No lymphadenopathy. Trachea midline. No jugular venous distention. BACK: No tenderness over the bony spine. No CVA tenderness. THORAX: Lungs sounds are clear to auscultation and equal bilaterally with symmetrical chest wall. No wheezing, rales or rhonchi. No crepitus, tenderness , subcutaneous air or deformities noted. HEART: Regular rate and rhythm. No gallops, rubs or murmurs are appreciated. ABDOMEN: Obese and soft with mild tenderness in the right upper quadrant. Positive bowel sounds in all quadrants. No guarding, rigidity or organomegaly. EXTREMITIES: Moves all extremities well on command and with purpose. All distal neurovascular statuses are intact and equal bilaterally. ED Course: Patient is assessed as noted above. Laboratory Testing: Test 12/05/17 17:30 12/05/17 18:55 Range/Units Urine Color YELLOW Urine Appearance CLEAR CLEAR Urine pH 5.5 4.5-7.5 Urine Specific [place] 1.025 1.000-1.030 Urine Protein NEG NEG Urine Glucose (UA) NEG NEG Urine Ketones NEG NEG Urine Occult Blood TRACE NEG Urine Nitrite POS NEG Urine Bilirubin NEG NEG Urine Urobilinogen NEG NEG Urine Leukocyte Esterase NEG NEG Urine WBC (Auto) 1-5 0-5 /hpf Urine RBC (Auto) 0-4 0-4 /hpf Urine Hyaline Casts (Auto) 1-5 0-5 /lpf Urine Epithelial Cells (Auto) >30 0-5 /lpf Urine Bacteria (Auto) 2+ NEG White Blood Count 10.68 4.8-10.8 K/uL Red Blood Count 5.03 4.2-5.4 M/uL Hemoglobin 11.2 12.0-16.0 g/dL Hematocrit 36.1 37-47 % Mean Corpuscular Volume 71.8 80-100 fL Mean Corpuscular Hemoglobin 22.3 25-34 pg Mean Corpuscular Hemoglobin Concent 31.0 32-36 g/dl Platelet Count 339 130-400 K/uL Mean Platelet Volume 9.1 7.4-10.4 fL Neutrophils (%) (Auto) 73.4 % Lymphocytes (%) (Auto) 17.2 % Monocytes (%) (Auto) 8.1 % Eosinophils (%) (Auto) 0.9 % Basophils (%) (Auto) 0.2 % Neutrophils # (Auto) 7.84 1.4-6.5 K/uL Lymphocytes # (Auto) 1.84 1.2-3.4 K/uL Monocytes # (Auto) 0.86 0.11-0.59 K/uL Eosinophils # (Auto) 0.10 0-0.5 K/uL Basophils # (Auto) 0.02 0-0.2 K/uL RDW Standard Deviation 42.0 36.4-46.3 fL RDW Coefficient of Variation 16.0 11.5-14.5 % Immature Granulocyte % (Auto) 0.2 % Immature Granulocyte # (Auto) 0.02 0.00-0.02 K/uL Sodium Level 139 136-145 mmol/L Potassium Level 3.7 3.5-5.1 mmol/L Chloride Level 109 98-107 mmol/L Carbon Dioxide Level 23 21-32 mmol/L Anion Gap 7.0 3-11 mmol/L Blood Urea Nitrogen 15 7-18 mg/dl Creatinine 1.49 0.60-1.20 mg/dl Est Creatinine Clear Calc Drug Dose 63.1 ml/min Estimated GFR () 50.0 Estimated GFR (Non- 43.2 BUN/Creatinine Ratio 10.3 10-20 Random Glucose 100 70-99 mg/dl Calcium Level 8.6 8.5-10.1 mg/dl Total Bilirubin 0.6 0.2-1 mg/dl Direct Bilirubin 0.1 0-0.2 mg/dl Aspartate Amino Transf (AST/SGOT) 17 15-37 U/L Alanine Aminotransferase (ALT/SGPT) 16 12-78 U/L Alkaline Phosphatase 130 45-117 U/L Total Protein 7.4 6.4-8.2 gm/dl Albumin 3.1 3.4-5.0 gm/dl Lipase 219 73-393 U/L Urine Culture: Pending. Gallbladder ultrasound: Was reviewed by myself and read by the radiologist showing no cholelithiasis or biliary duct dilatation, mild hepatomegaly and mild right pelvocaliectasis, Abdominal/Pelvic CT without Contrast: Was reviewed by myself and read by the radiologist showing mild to moderate right hydroureteronephrosis without obstructing calculi. No evidence of renal or ureter calculi. Hepatic steatosis. Patient was hydrated with normal saline and given 4 mg of Zofran IV for nausea. She was offered pain medication and refused. Patient was given 500 mg of ciprofloxacin by mouth prior to departure. Patient was reassessed multiple times during her stay in the emergency department. Patient's case was reviewed with Dr. Nice; we agreed on diagnostic approach, treatment, disposition and plan. On my reassessment after patient's CAT scan she did report just prior to the decrease in her pain she did go to the bathroom and urinate; evening questionably if she passed a possible kidney stone. Patient was educated about today's findings and instructed on her treatment plan ; she verbalized understanding and agreement with this plan. Clinical Impression: Right upper quadrant abdominal pain. Right flank pain. Nausea/vomiting. Hydroureteronephrosis. Decision-Making: Initially my differential diagnosis I considered cholecystitis , hepatitis, pancreatitis, pyelonephritis, ureter calculus, musculoskeletal disorder and other causes. Disposition: Patient discharged home in stable condition accompanied by her daughter; prior to departure she was reassessed and subjectively reported she was feeling much better and was pain-free and had resolution of all her nausea. Plan: Patient was encouraged alternate ibuprofen and acetaminophen every 3 hours as needed for pain. Patient is encouraged to stay well-hydrated. Patient was encouraged to use 500 mg of ciprofloxacin 2 times a day for 7 days. Patient was encouraged to follow-up with personal physician for recheck in 1-2 days. Patient was encouraged return the ED for worsening symptoms, fevers, or any new/ concerning symptoms.
== END 2017-12-05 21:40 | disposition home or self-care (01) ==
LOC: C.EDB 16:26 → C.EDC 21:40
DX: N13.30 Unspecified hydronephrosis (principal); K21.9 Gastro-esophageal reflux disease without esophagitis; Z90.721 Acquired absence of ovaries, unilateral; Z98.51 Tubal ligation status; J45.909 Unspecified asthma, uncomplicated; Z79.899 Other long term (current) drug therapy

== ENCOUNTER → 2018-03-31 | Outpatient (CLI) | payer OTHER ==
[~2018-03-31] MED LIST changes: +CIPR-255 PO; +LANS15CA27 PO; +NORE1TAB93 PO; +OXYC7.5T65 PO; -PRLSR20 PO
--- NOTE | 2018-03-31 09:06 | DIAGNOSTIC IMAGING REPORT ---
EXAMINATION: RENAL ULTRASOUND CLINICAL HISTORY: N13.30 Hydronephrosis U COMPARISON STUDY: CT scan dated 12/05/2017 FINDINGS: The right kidney measures 12.7 cm. The left kidney measures 11 cm. There is no evidence of hydronephrosis. There are no renal masses. No bladder abnormalities are visualized. Bilateral ureteral jets were visualized. IMPRESSION : Normal renal ultrasound Electronically signed by: Rogerio Olea M.D. 03/31/2018 9:05 AM Dictated Date/Time: 03/31/2018 8:44 AM
== END | disposition home or self-care (01) ==
LOC: C.ULTR 07:58
PROVIDERS: ATTEND Urology
DX: N13.30 Unspecified hydronephrosis (principal)